=== PATIENT | female | born 1980 | race American Indian/Alaskan Native ===

== ENCOUNTER 2016-11-29 10:33 | Emergency (ER) | payer OTHER ==
[2016-11-29 10:34] VITALS: BMI 25.8
[2016-11-29 10:40] VITALS: BP 145/89; PULSE 101; RESP 18; TEMP 99.4; O2SAT 98
--- NOTE | 2016-11-29 11:51 | ED PDOC ---
HPI: CCC, URI, Sore Throat Time Seen by Provider: 11/29/16 10:55 Chief Complaint (Nursing): Flu-like Symptoms History Per: Patient History/Exam Limitations: no limitations Onset/Duration Of Symptoms: Days (3), Gradual Current Symptoms Are (Timing): Still Present Location Of Pain: Throat, Diffuse Myalgias, Headache Sick Contacts (Context): None Associated Symptoms: Fever, Chills, Sore Throat, Cough, Sputum (yellow), Myalgias. denies: Neck Pain, Sinus Drainage, Nasal Congestion, Nausea, Vomiting , Diarrhea Ear Symptoms: Bilateral: None Severity: Mild Additional History Per: Patient Additional Complaint(s): Pt c/o headache, bodyaches, sore throat, fever, chills, congestion x3 days. Reports taking OTC meds with no relief. Past Medical History Reviewed: Historical Data, Nursing Documentation, Vital Signs Vital Signs: Last Vital Signs Temp 99.4 F 11/29/16 10:40 Pulse 101 H 11/29/16 10:40 Resp 18 11/29/16 10:40 BP 145/89 11/29/16 10:40 Pulse Ox 98 11/29/16 11:52 - Medical History PMH: Bronchitis, Hypothyroidism (new onset) Denies: Chronic Kidney Disease - Family History Family History: States: Unknown Family Hx - Living Arrangements Living Arrangements: With Family - Social History Current smoker - smoking cessation education provided: No - Home Medications Home Medications: Ambulatory Orders Medication Instructions Recorded oxyCODONE/Acetaminophen [Percocet 1 tab PO Q6 PRN 06/23/16 5/325 mg Tab] Albuterol HFA [Ventolin HFA 90 2 puff IH Q6 #200 puff 07/05/16 mcg/actuation (8 g)] Azithromycin [Zithromax] 250 mg PO DAILY #6 tab 07/05/16 Methylprednisolone [Medrol Dose 4 mg PO DAILY #21 mg 07/05/16 Pack (21 tabs)] Azithromycin [Z-Ilia] 250 mg PO DAILY #6 tab 11/29/16 - Allergies Allergies/Adverse Reactions: Allergies Allergy/AdvReac Type Severity Reaction Status Date / Time No Known Allergies Allergy Verified 06/23/16 06:22 Review of Systems ROS Statement: Except As Marked, All Systems Reviewed And Found Negative Constitutional: Positive for: Fever, Chills Cardiovascular: Negative for: Chest Pain, Palpitations Respiratory: Positive for: Cough, Sputum (yellow). Negative for: Shortness of Breath, Hemoptysis, SOB with Exertion, Wheezing Gastrointestinal: Negative for: Nausea, Vomiting, Abdominal Pain, Diarrhea Genitourinary Female: Negative for: Dysuria, Hematuria Skin: Negative for: Rash Physical Exam - Reviewed Nursing Documentation Reviewed: Yes Vital Signs Reviewed: Yes - Physical Exam Appears: Positive for: Uncomfortable Head Exam: Positive for: ATRAUMATIC, NORMAL INSPECTION, NORMOCEPHALIC Eye Exam: Positive for: Normal appearance, EOMI, PERRL ENT: Positive for: Pharynx Is (clear,mmm), Pharyngeal Erythema (mild). Negative for: Tonsillar Exudate, Tonsillar Swelling Neck: Positive for: Normal, Painless ROM, Supple Cardiovascular/Chest: Positive for: Regular Rate, Rhythm. Negative for: Edema, Gallop Respiratory: Positive for: Normal Breath Sounds. Negative for: Decreased Breath Sounds, Accessory Muscle Use, Crackles, Rales, Rhonchi, Stridor, Wheezing Gastrointestinal/Abdominal: Positive for: Normal Exam, Bowel Sounds, Soft. Negative for: Tenderness Extremity: Positive for: Normal ROM. 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 Negative for: Motor/Sensory Deficits - ECG O2 Sat by Pulse Oximetry: 98 Pulse Ox Interpretation: Normal - Radiology X-Ray: Interpreted by Me X-Ray Interpretation: No Acute Disease - Progress ED Course And Treament: cxr nml. flu negative will start on a zpack. pt agree's with plan. Re-evaluation Time: 13:33 Condition: Improved Disposition - Clinical Impression Clinical Impression: URI (upper respiratory infection) - Patient ED Disposition Is Patient to be Admitted: No Counseled Patient/Family Regarding: Studies Performed, Diagnosis, Need For Followup, Rx Given - Disposition Referrals: [facility] [Outside] (2 to 3 days) Disposition: Routine/Home Disposition Time: 13:34 Condition: GOOD Prescriptions: Azithromycin [Z-Ilia] 250 mg PO DAILY #6 tab Instructions: Upper Respiratory Infection (ED) Forms: [facility] ED School/Work Excuse
--- NOTE | 2016-11-29 15:25 | RAD ---
HISTORY: cough COMPARISON: 07/05/2016 FINDINGS: LUNGS: No active pulmonary disease. PLEURA: No significant pleural effusion identified, no pneumothorax apparent. CARDIOVASCULAR: Normal. OSSEOUS STRUCTURES: Thoracic dextroscoliosis VISUALIZED UPPER ABDOMEN: Normal. OTHER FINDINGS: None. IMPRESSION: No active disease.
== END 2016-11-29 16:07 | disposition home or self-care (01) ==
LOC: H.ER 10:33
DX: J06.9 Acute upper respiratory infection, unspecified (principal); R05 Cough; E03.9 Hypothyroidism, unspecified; J02.9 Acute pharyngitis, unspecified; R51 Headache